=== PATIENT | female | born 1995 ===

== ENCOUNTER → 2016-08-09 | Emergency (ER) | payer OTHER ==
[~2016-08-09] MED LIST: AZITHROMYCIN 250 MG TAB PO ONE; CEFTRIAXONE IM 350 MG/ML SYRINGE IM ONE; EMTRICITABINE/TENOFOVIR 200MG/300MG TAB PO ONE; ONDANSETRON DISINTEGRATING 4 MG TAB PO ONE; RALTEGRAVIR 400 MG TAB PO ONE; ULIPRISTAL ACETATE 30 MG TAB PO ONE
[2016-08-09 12:09] VITALS: O2SAT 99
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
[2016-08-09 14:17] LABS: % IMMATURE GRANULYOCYTES 0.3 % (0.0-1.1); ABSOLUTE IMMATURE GRANULOCYTES 0.02 10^3/uL (0.00-0.10); ADD DIFF? NO; ADD MORPH? NO; ADD SCAN? NO; ATYPICAL LYMPHOCYTE FLAG 30 (0-99); FRAGMENT RBC FLAG 0 (0-99); HEMATOCRIT 48.3 % (38.0-47.0); HEMOGLOBIN 16.8 g/dL (12.6-16.3); LEFT SHIFT FLG 0 (0-99); LIPEMIA HEMOLYSIS FLAG 90 (0-99); MEAN CELL HEMOGLOBIN 31.9 pg (27.9-34.1); MEAN CELL HEMOGLOBIN CONCENTR. 34.8 g/dL (32.4-36.7); MEAN CELL VOLUME 91.7 fL (81.5-99.8); MEAN PLATELET VOLUME 10.6 fL (8.7-11.7); PLATELET CLUMPS FLAG 0 (0-99); PLATELET COUNT 301 10^3/uL (150-400); RED BLOOD CELL COUNT 5.27 10^6/uL (4.18-5.33)
[2016-08-09 14:27] LABS: ALANINE AMINOTRANSFERASE 54 IU/L (9-52); ALKALINE PHOSPHATASE 99 IU/L (38-126); ANION GAP 14 mEq/L (8-16); ASPARTATE AMINOTRANSFERASE 43 IU/L (14-46); BILIRUBIN,TOTAL 1.2 mg/dL (0.1-1.4); BILIRUBIN-CONJUGATED 0.5 mg/dL (0.0-0.5); BILIRUBIN-UNCONJUGATED 0.7 mg/dL (0.0-1.1); CALCIUM 9.8 mg/dL (8.5-10.4); CARBON DIOXIDE 25 mEq/l (22-31); CHLORIDE 103 mEq/L (97-110); CREATININE 0.7 mg/dL (0.6-1.0); GLOMERULAR FILTRATION RATE > 60; GLUCOSE 92 mg/dL (70-100); POTASSIUM 4.3 mEq/L (3.5-5.2); SODIUM 142 mEq/L (134-144); TOTAL PROTEIN 8.8 g/dL (6.3-8.2)
[2016-08-09 15:56] VITALS: BP 120/83; PULSE 94; RESP 18; TEMP 99.7
[2016-08-09 19:32] LABS: HEPATITIS B SURFACE ANTIBODY POSITIVE (NEGATIVE)
== END | disposition home or self-care (01) ==
LOC: EEVIPCON 12:06
DX: T76.21XA Adult sexual abuse, suspected, initial encounter (principal)
CPT/HCPCS: G0472; J0696